=== PATIENT | male | born 2000 | race Caucasian/White ===

== ENCOUNTER 2021-07-08 22:07 | Emergency (ER) | payer SELFPAY ==
[2021-07-08 22:23] VITALS: BP 149/93; PULSE 71; O2SAT 100
[2021-07-08] MEDS ORDERED: TORAdol 30 mg Injection IV ONE (22:29)
[2021-07-08] MEDS ORDERED: Sodium Chloride 0.9% 1000 ML 1,000 ML IV SCH (22:30)
[2021-07-08] MEDS ORDERED: Sodium Chloride 0.9% 1000 ML 0 ML ONE (22:37)
[2021-07-08] MEDS ORDERED: TORAdol 30 mg Injection ONE (22:37)
[2021-07-08 22:41] LABS: Absolute Neutrophil Ct (ANC) 4.96 (1.4-6.9); BASOPHIL % 0.4 % (0.0-0.4); Basophil (Absolute #) 0.04 (0-0.4); Eosinophil % 1.3 % (0.00-5.0); Eosinophil (Absolute #) 0.12 (0-0.5); Hematocrit 48.2 % (42-50); Hemoglobin 16.5 gm/dl (12.5-18.0); Lymphocyte (Absolute #) 3.66 (1.0-4.6); Lymphocytes % 38.1 % (24.0-44.0); Mean Cell Volume 90.9 fl (78-100); Mean Corpuscular Hemoglobin 31.1 pg (26-32); Mean Corpuscular Hgb Concent. 34.2 g/dl (32-36); Mean Platelet Volume 10.1 fl (7.5-11.0); Monocyte (Absolute #) 0.82 (0.0-1.3); Monocytes % 8.5 % (0.0-12.0); Neutrophil % 51.7 % (36.0-66.0); Platelet Count 280 K/mm3 (150-450); Red Cell Distribution Width 12.4 % (11.5-14.0); White Blood Count 9.6 K/mm3 (4.0-10.5)
[2021-07-08 22:48] LABS: ALBUMIN 4.5 g/dL (3.5-5.0); ALKALINE PHOSPHATASE 71 U/L (38-126); AMYLASE 109 U/L (30-110); ANION GAP 14.6 MEQ/L (5-15); BLOOD UREA NITROGEN 14 mg/dL (9-20); CHLORIDE 103 mmol/L (98-107); Calcium 9.5 mg/dL (8.4-10.2); Carbon Dioxide 24 mmol/L (22-30); Creatinine 1 0.99 mg/dL (0.66-1.25); EST GLOMERULAR FILTRATION RATE > 60.0 ML/MIN; Glucose 86 mg/dL (74-106); LIPASE 36 U/L (23-300); Potassium 3.5 mmol/L (3.5-5.1); SGOT/AST 24 U/L (17-59); SGPT/ALT 16 U/L (0-50); SODIUM 138 mmol/L (137-145); Total Protein 7.5 g/dL (6.3-8.2)
--- NOTE | 2021-07-08 22:58 | ERPHSYRPT ---
- History of Present Illness Time Seen by Provider: 07/08/21 22:55 Historian: patient Exam Limitations: no limitations Patient Subjective Stated Complaint: pt states he started having rt side chest pain radiating to the center of his chest. describes as sharp shooting pain. rates pain at a 2/10 at this time. states was 8/10 for approx 15-20 min when pain first started. Triage Nursing Assessment: pt alert and oriented, answers questions approp. pt ambulatory with steady gait noted. respirations nonlabored with lungs cta. skin pink warm and dry. heart rate 65 on monitor, sinus rhythm. Physician History: Patient is a 20-year-old white male who was in [facility] who started to complain of chest pain and was released from [facility] so that he could come to the ER. He complains of pain in the right chest right axillary area which radiates to the mid chest he has had no shortness of breath no nausea no vomiting no diaphoresis pain is been on and off his last episode was a month ago. Timing/Duration: today Activities at Onset: none Quality: throbbing Location: substernal, central Chest Pain Radiation: no radiation Severity of Pain-Max: moderate Severity of Pain-Current: moderate Modifying Factors: Improves With: nothing Associated Symptoms: denies symptoms Prior Chest Pain/Cardiac Workup: no prior cardiac workup Nitro Today/Relief: no nitro taken today Aspirin Treatment Today: no aspirin today Allergies/Adverse Reactions: No Known Drug Allergies Allergy (Verified 07/08/21 22:23) Home Medications: No Home Meds [No Home Meds] 1 [facility] UD 07/13/16 [History] Hx Tetanus, Diphtheria Vaccination/Date Given: Yes Hx Influenza Vaccination/Date Given: No Hx Pneumococcal Vaccination/Date Given: No Immunizations Up to Date: Yes Travel Risk - International Travel Have you traveled outside of the country in past 3 weeks: No - Coronavirus Screening Are you exhibiting any of the following symptoms?: No Close contact with a COVID-19 positive Pt in past 14-21 Days: No - Vaccine Status Have you recieved a Covid-19 vaccination: No - Review of Systems Constitutional: No Fever, No Chills Eyes: No Symptoms Ears, Nose, & Throat: No Symptoms Respiratory: No Cough, No Dyspnea Cardiac: Chest Pain, No Edema, No Syncope Abdominal/Gastrointestinal: No Abdominal Pain, No Nausea, No Vomiting, No Diarrhea Genitourinary Symptoms: No Dysuria Musculoskeletal: No Back Pain, No Neck Pain Skin: No Rash Neurological: No Dizziness, No Focal Weakness, No Sensory Changes Psychological: No Symptoms Endocrine: No Symptoms All Other Systems: Reviewed and Negative - Past Medical History Pertinent Past Medical History: No - Past Surgical History Past Surgical History: No - Social History Smoking Status: Current every day smoker How long have you smoked: 6 yrs Exposure to second hand smoke: No Drug Use: none Patient Lives Alone: No - Nursing Vital Signs Nursing Vital Signs: Initial Vital Signs Temperature 98.1 F 07/08/21 22:09 Pulse Rate 71 07/08/21 22:09 Respiratory Rate 16 07/08/21 22:09 Blood Pressure 149/93 07/08/21 22:09 O2 Sat by Pulse Oximetry 100 07/08/21 22:09 Pain Scale Pain Intensity 2 - Physical Exam General Appearance: no apparent distress, alert Eye Exam: PERRL/EOMI, eyes nml inspection Ears, Nose, Throat Exam: normal ENT inspection, moist mucous membranes Neck Exam: normal inspection, non-tender, supple, full range of motion Respiratory Exam: normal breath sounds, lungs clear, No respiratory distress Cardiovascular Exam: regular rate/rhythm, normal heart sounds Gastrointestinal/Abdomen Exam: soft, No tenderness, No mass Back Exam: normal inspection, No CVA tenderness, No vertebral tenderness Extremity Exam: normal inspection, normal range of motion Neurologic Exam: alert, oriented x 3, cooperative, normal mood/affect, sensation nml, No motor deficits Skin Exam: normal color, warm, dry SpO2: 100 - Course Nursing assessment & vital signs reviewed: Yes EKG Interpreted by Me: RATE ([id number]), Sinus Rhythm, NORMAL AXIS, NORMAL INTERVALS, NORMAL QRS, NORMAL ST-T Ordered Tests: Active Orders 24 hr Category Date Time Status Rail Bonder STAT Care 07/08/21 22:27 Active EKG-ER Only STAT Care 07/08/21 22:27 Active CHEST 1 VIEW (PORTABLE) Stat Exams 07/08/21 22:27 Ordered AMYLASE Stat Lab 07/08/21 22:38 Completed CBC W DIFF Stat Lab 07/08/21 22:38 Completed CMP Stat Lab 07/08/21 22:38 Completed LIPASE Stat Lab 07/08/21 22:38 Completed Lactic Acid Stat Lab 07/08/21 22:27 Completed UA W/RFX UR CULTURE Stat Lab 07/08/21 22:27 Ordered Urine Triage Profile Stat Lab 07/08/21 22:27 Ordered Medication Summary Generic Name Dose Route Start Last Admin Trade Name Ava PRN Reason Stop Dose Admin Sodium Chloride 1,000 mls @ 100 mls/hr 07/08/21 22:30 07/08/21 22:43 Sodium Chloride 0.9% 1000 Ml IV 08/07/21 22:29 Not Given .Q10H CANDELARIA Discontinued Medications Generic Name Dose Route Start Last Admin Trade Name Ava PRN Reason Stop Dose Admin Ketorolac Tromethamine 30 mg 07/08/21 22:29 07/08/21 22:43 Ketorolac Tromethamine 30 Mg/Ml Inj IV 07/08/21 22:30 Not Given STAT ONE Ketorolac Tromethamine Confirm 07/08/21 22:37 Ketorolac Tromethamine 30 Mg/Ml Inj Administered 07/08/21 22:38 Dose 30 mg .ROUTE .STK-MED ONE Lab/Rad Data: Laboratory Result Diagrams 07/08/21 22:38 07/08/21 22:38 Laboratory Results 07/08/21 07/08/21 07/08/21 Range/Units 22:38 22:38 22:27 WBC 9.6 (4.0-10.5) K/mm3 RBC 5.30 (4.1-5.6) M/mm3 Hgb 16.5 (12.5-18.0) gm/dl Hct 48.2 (42-50) % MCV 90.9 (78-100) fl MCH 31.1 (26-32) pg MCHC 34.2 (32-36) g/dl RDW 12.4 (11.5-14.0) % Plt Count 280 (150-450) K/mm3 MPV 10.1 (7.5-11.0) fl Gran % 51.7 (36.0-66.0) % Eos # (Auto) 0.12 (0-0.5) Absolute Lymphs (auto) 3.66 (1.0-4.6) Absolute Monos (auto) 0.82 (0.0-1.3) Lymphocytes % 38.1 (24.0-44.0) % Monocytes % 8.5 (0.0-12.0) % Eosinophils % 1.3 (0.00-5.0) % Basophils % 0.4 (0.0-0.4) % Absolute Granulocytes 4.96 (1.4-6.9) Basophils # 0.04 (0-0.4) Sodium 138 (137-145) mmol/L Potassium 3.5 (3.5-5.1) mmol/L Chloride 103 (98-107) mmol/L Carbon Dioxide 24 (22-30) mmol/L Anion Gap 14.6 (5-15) MEQ/L BUN 14 (9-20) mg/dL Creatinine 0.99 (0.66-1.25) mg/dL Estimated GFR > 60.0 ML/MIN Glucose 86 (74-106) mg/dL Lactic Acid 0.8 (0.4-2.0) Calcium 9.5 (8.4-10.2) mg/dL Total Bilirubin 0.80 (0.2-1.3) mg/dL AST 24 (17-59) U/L ALT 16 (0-50) U/L Alkaline Phosphatase 71 (38-126) U/L Serum Total Protein 7.5 (6.3-8.2) g/dL Albumin 4.5 (3.5-5.0) g/dL Amylase 109 (30-110) U/L Lipase 36 (23-300) U/L - Progress Progress: unchanged Air Movement: good Blood Culture(s) Obtained: No Antibiotics given: No - Departure Departure Disposition: AMA Clinical Impression: Chest pain Condition: Stable Critical Care Time: No Referrals: BETTIE RM [Primary Care Provider] -
--- NOTE | 2021-07-09 08:47 | XRAY ---
Indication: Pain. Comparison: None Portable chest hyperinflated and clear. Heart is not enlarged. Bony thorax intact.
== END 2021-07-08 22:56 | disposition left against medical advice (07) ==
LOC: ED 22:07
DX: R07.9 Chest pain, unspecified (principal)
CPT/HCPCS: 36415; 71045; 80053; 82150; 83605; 83690; 85025; 93005; 93041; 99284; J1885